=== PATIENT | female | born 1985 | race American Indian/Alaskan Native ===

== ENCOUNTER 2020-11-02 14:42 | Emergency (ER) | payer SELFPAY ==
[2020-11-02 14:59] VITALS: BP 127/79
--- NOTE | 2020-11-02 15:29 | Emergency Department Report ---
ED Eye Problem HPI - General Chief complaint: Eye Problems Stated complaint: POSS GLASS IN LT EYE Time Seen by Provider: 11/02/20 14:59 Source: patient Mode of arrival: Ambulatory Limitations: No Limitations - History of Present Illness Initial comments: Chief complaint: "Something in my eye." HPI: This is a 35-year-old female with history of asthma and tobacco dependence who presents with foreign body in left eye with severe pain and blurry vision. Patient was wearing glasses while cutting metal and glass. She felt object flying to her eye. She had immediate burning. She has decreased vision and severe eye pain despite Visine drops and water irrigation. MD chief complaint: eye pain, vision change -: Sudden, minutes(s) (30 minutes prior to arrival) Onset Description: sudden Location: left eye Place: work If Injury: occurred while hammering/ (Patient was using a saw to cut metal and glass) Severity: severe Severity scale (0 -10): 10 If Pain, Quality: burning Consistency: constant Context: injury (Metal or glass flew into patient's eye) Treatments Prior to Arrival: irrigated eye, OTC eye drops - Related Data Previous Rx's Medication Instructions Recorded Last Taken Type Erythromycin [Erythromycin Ophth 1 applic OS QID 7 Days #1 tube 11/02/20 Unknown Rx Oint] HYDROcodone/APAP 5-325 [Shellman 1 each PO Q6HR PRN #15 tablet 11/02/20 Unknown Rx 5/325] Ibuprofen [Motrin 800 MG tab] 800 mg PO Q8HR PRN #15 tablet 11/02/20 Unknown Rx Allergies Allergy/AdvReac Type Severity Reaction Status Date / Time No Known Allergies Allergy Unverified 11/02/20 14:54 ED Review of Systems ROS: Stated complaint: POSS GLASS IN LT EYE Other details as noted in HPI Constitutional: denies: fever Respiratory: denies: cough, shortness of breath Cardiovascular: denies: chest pain Gastrointestinal: denies: abdominal pain, nausea, vomiting ED Past Medical Hx - Past Medical History Previous Medical History?: Yes Additional medical history: SCOLISIS, asthma - Surgical History Past Surgical History?: No - Social History Smoking Status: Current Every Day Smoker Substance Use Type: None - Medications Home Medications: Home Medications Medication Instructions Recorded Confirmed Last Taken Type Erythromycin [Erythromycin Ophth 1 applic OS QID 7 Days #1 tube 11/02/20 Unknown Rx Oint] HYDROcodone/APAP 5-325 [[place] 1 each PO Q6HR PRN #15 tablet 11/02/20 Unknown Rx 5/325] Ibuprofen [Motrin 800 MG tab] 800 mg PO Q8HR PRN #15 tablet 11/02/20 Unknown Rx ED Physical Exam - General Limitations: No Limitations General appearance: alert, in no apparent distress - Head Head exam: Present: atraumatic, normocephalic - Eye Eye exam: Present: PERRL, conjunctival injection Pupils: Present: normal accommodation - Expanded Eye Exam Expanded Eyelids: Normal Inspection: Left Pupils: Regular, Round: Bilateral, Reactive: Bilateral Sclera/Conjunctival: Injection: Left, Foreign Body: Left (No foreign body) - Psychiatric Psychiatric exam: Present: normal affect, normal mood - Skin Skin exam: Present: warm, dry, intact, normal color - Other Other exam information: Right eye: Normal exam, no injection, no pain, intact vision Left eye, injected sclera, constant tearing, fluorescein uptake inferior third portion of the cornea no foreign body no streaks to indicate foreign body ED Course Vital Signs 11/02/20 14:58 Temperature 98.3 F Pulse Rate 92 H Respiratory 20 Rate Blood Pressure 127/79 O2 Sat by Pulse 100 Oximetry ED Medical Decision Making - Medical Decision Making Left eye corneal abrasion: Patient does not require corrective lenses, she does not use contact lenses. She had immediate pain relief with Tetracaine Patient referred to [facility] for reexamination within 2 days. Patient prescribed erythromycin ointment Shellman and ibuprofen. Critical care attestation.: If time is entered above; I have spent that time in minutes in the direct care of this critically ill patient, excluding procedure time. ED Disposition Clinical Impression: Left corneal abrasion Disposition: HOME / SELF CARE / HOMELESS Is pt being admited?: No Does the pt Need Aspirin: No Condition: Stable Instructions: Corneal Abrasion Additional Instructions: Please follow-up at the [facility] next week. #[phone] [address] [place] [address] Prescriptions: Erythromycin [Erythromycin Ophth Oint] 1 applic OS QID 7 Days #1 tube Ibuprofen [Motrin 800 MG tab] 800 mg PO Q8HR PRN #15 tablet PRN Reason: Pain , Severe (7-10) HYDROcodone/APAP 5-325 [Shellman 5/325] 1 each PO Q6HR PRN #15 tablet PRN Reason: Pain
== END 2020-11-02 15:45 | disposition home or self-care (01) ==
LOC: ED 14:42
DX: S05.02XA Injury of conjunctiva and corneal abrasion without foreign body, left eye, initial encounter (principal); J45.909 Unspecified asthma, uncomplicated; F17.200 Nicotine dependence, unspecified, uncomplicated; Z79.899 Other long term (current) drug therapy; X58.XXXA Exposure to other specified factors, initial encounter; Y93.89 Activity, other specified; Y92.89 Other specified places as the place of occurrence of the external cause; Y99.0 Civilian activity done for income or pay